=== PATIENT | male | born 1980 | race African-American/Black ===

== ENCOUNTER 2020-07-29 10:47 | Emergency (ER) | payer SELFPAY ==
[~2020-07-29] VITALS: Ht 172.7 cm; Wt 77.2 kg
[2020-07-29 11:10] VITALS: BP 134/84
--- NOTE | 2020-07-29 11:21 | PHYS DOC ---
Past Medical History Past Medical History: Anxiety, Depression, Schizophrenia, Other Additional Past Medical Histor: auditory hallucinations Past Surgical History: No Surgical History Smoking Status: Current Every Day Smoker Additional Information: 5-7 cigarettes daily Alcohol Use: Rarely Social History Narrative: last used 2 days ago General Adult EDM: Chief Complaint: OTHER COMPLAINTS HPI: HPI: Patient is a 40 year old male who presents with RSI as he was released from [facility] after a staph infection and RSI wants him to come here to make sure that the staph infection was gone. The records from [facility] state that he finished his full antibiotic therapy 5 days prior to going to [facility]. Patient's been RSI since last night. He states that he is schizophrenic and he is hearing voices but does not want to kill himself today. He states that he does have a plan but will not tell us what his plan is. He states the voices " tell him bad things" and patient will not tell us what they are saying. Patient states he is not going to undress as close as we asked and he will not do blood work. He has agreed to a urinalysis. He has agreed for our PAT team to come in and speak with him. Patient has a history of depression, schizophrenia, smoking, anxiety, auditory hallucinations. Patient denies HI at this time. Patient denies fever, body aches, headache, dizziness, chest pain, shortness of breath, abdominal pain, nausea, vomiting, diarrhea, cough. Review of Systems: Review of Systems: Constitutional: Denies fever or chills. [] Eyes: Denies change in visual acuity. [] HENT: Denies nasal congestion or sore throat. [] Respiratory: Denies cough or shortness of breath. [] Cardiovascular: Denies chest pain or edema. [] GI: Denies abdominal pain, nausea, vomiting, bloody stools or diarrhea. [] : Denies dysuria. [] Musculoskeletal: Denies back pain or joint pain. [] Integument: Denies rash. +healing wound to right leg[] Neurologic: Denies headache, focal weakness or sensory changes. [] Endocrine: Denies polyuria or polydipsia. [] Lymphatic: Denies swollen glands. [] Psychiatric: +depression or +anxiety, +SI, +Auditory hallucination. [] Heart Score: Risk Factors: Risk Factors: DM, Current or recent (<one month) smoker, HTN, HLP, family history of CAD, obesity. Risk Scores: Score 0 - 3: 2.5% MACE over next 6 weeks - Discharge Home Score 4 - 6: 20.3% MACE over next 6 weeks - Admit for Clinical Observation Score 7 - 10: 72.7% MACE over next 6 weeks - Early Invasive Strategies Allergies: Allergies: Allergies Coded Allergies Type Severity Reaction Last Updated Verified No Known Drug Allergies 07/29/20 No Physical Exam: PE: Constitutional: Well developed, well nourished, no acute distress, non-toxic appearance. [] HENT: Normocephalic, atraumatic, bilateral external ears normal, oropharynx moist, no oral exudates, nose normal. [] Eyes: PERRLA, EOMI, conjunctiva normal, no discharge. [] Neck: Normal range of motion, no tenderness, supple, no stridor. [] Cardiovascular:Heart rate regular rhythm, no murmur [] Lungs & Thorax: Bilateral breath sounds clear to auscultation [] Abdomen: Bowel sounds normal, soft, no tenderness, no masses, no pulsatile masses. [] Skin: Warm, dry, no erythema, no rash. Healed wound to right lateral leg.[] Back: No tenderness, no CVA tenderness. [] Extremities: No tenderness, no cyanosis, no clubbing, ROM intact, no edema. [] Neurologic: Alert and oriented X 3, normal motor function, normal sensory function, no focal deficits noted. [] Psychologic: Affect normal, judgement normal, mood normal. SI, auditory hallucinations[] Current Patient Data: Vital Signs: Vital Signs Date Time Temp Pulse Resp B/P (MAP) Pulse Ox O2 Delivery O2 Flow Rate FiO2 07/29/20 11:10 97.9 107 16 134/84 (101) 93 Room Air 97.9 EKG: EKG: [] Radiology/Procedures: Radiology/Procedures: [] Course & Med Decision Making: Course & Med Decision Making Pertinent Labs and Imaging studies reviewed. (See chart for details) See HPI. Upon examination the wound to the right lateral calf is healed almost completely with a tiny scab on it. There is no drainage, no redness. There is no signs of infection. Patient is now a one-to-one as he is refusing to go back to [facility] stating they did not help him. Our psych eval is going to come in and speak with him. Alert and oriented x4. Ambulatory with a steady gait. Skin pink warm and dry. Vital signs are within normal limits. Again he is refusing any kind of blood work. Kathi with PAT team is here speaking with the patient and making him a safety plan. Patient is discharged home. He has a appointment with [facility] for second morning. [] Shashi Disclaimer: Shashi Disclaimer: This electronic medical record was generated, in whole or in part, using a voice recognition dictation system. Departure Departure Impression: Primary Impression: Visit for wound check Additional Impression: Psychiatric problem Disposition: 01 DC HOME SELF CARE/HOMELESS Condition: STABLE Patient Instructions: Medical Screening Exam Additional Instructions: Follow-up with primary care provider as needed. Follow-up with RSI. Take any or all medications as needed. ROBYN HARRIS APRN Jul 29, 2020 11:21
[2020-07-29] MEDS ORDERED: LIDO:MAALOX 1:1 20 ML SINGLE DOSE. SWSW ONE (13:15)
== END 2020-07-29 13:15 | disposition home or self-care (01) ==
LOC: ER 10:47
DX: F99 Mental disorder, not otherwise specified (principal); F32.9 Major depressive disorder, single episode, unspecified; F41.9 Anxiety disorder, unspecified; F20.9 Schizophrenia, unspecified; F17.210 Nicotine dependence, cigarettes, uncomplicated; Z98.890 Other specified postprocedural states; Z48.00 Encounter for change or removal of nonsurgical wound dressing
CPT/HCPCS: 99284